=== PATIENT | male | born 1975 | race Two or more races ===

== ENCOUNTER 2024-06-28 17:04 | Emergency (ER) | payer OTHER, SELFPAY ==
[2024-06-28 17:23] VITALS: BP 146/92; PULSE 122; RESP 18; TEMP 37.2; O2SAT 99; BMI 27.4
[2024-06-28 18:14] LABS: PCR FLU A POSITIVE PCR FLU A (Negative); PCR FLU B Negative PCR FLU B (Negative); PCR RSV Negative PCR RSV (Negative); SARS PCR* Negative SARS-CoV-2 (Negative)
== END 2024-06-28 20:38 | disposition left against medical advice (07) ==
PROVIDERS: Emergency Provider Family Medicine
DX: Z53.21 Procedure and treatment not carried out due to patient leaving prior to being seen by health care provider (principal)
CPT/HCPCS: 87631

== ENCOUNTER 2024-07-27 06:03 | Day surgery (SDC) | payer OTHER, SELFPAY ==
[2024-07-27] VITALS (12 sets, daily range): BP systolic 137–153; BP diastolic 84–103; PULSE 71–98; RESP 14–19; TEMP 36.4–37.2; O2SAT 94–98; BMI 29.5
--- OUTSIDE RECORDS SUMMARY | 2024-07-27 06:07 | XMS_ITS | Clinical Summary ---
Author Organization [facility] Address [address] [place] [address] Care Team Providers Care Tack Picker Name Role Phone Unavailable Primary Care Provider Unavailabl e Source Comments You are receiving this document as you are listed as the primary care provider,follow-up provider, or the patient has been referred to you for consultation.This is in compliance with the Medicare and[facility] EHR Incentive [facility],which states Providers who transition their patient to another setting of careor provider of care or refers their patient to another provider of care shouldprovide summary care record for each transition of care or referral. [facility] Allergies No known active allergies Medications Medication Sig Dispensed Refills Start Date End Date Status gabapentin (NEURONTIN) 300 MG capsule Take 300 mg by mouth three times a day. 11/17/2020 Active omeprazole (PRILOSEC) 20 MG capsule Take 1 Capsule by mouth daily for 30 days. Take 1 hour before a meal. 30 Capsule 05/03/2021 05/03/2021 Discontinued Active Problems Problem Noted Date Diagnosed Date Lung nodule 11/22/2020 Overview (11/22/2020): CT (11/22/2020): incidental 3mm RLL nodule -->Follow-up in 6 months Fatty liver 11/22/2020 Overview (11/22/2020): Seen on CT scan on 11/22/2020 Prediabetes 10/25/2020 Overview (10/25/2020): A1c (10/24/2020): 6.2 Moderate mixed hyperlipidemia not requiring stat in therapy 10/25/2020 Overview (11/14/2020): ASCVD risk (10/2020): 5.0% Major depression, recurrent 07/16/2011 Marijuana dependence 07/16/2011 Hematuria 07/16/2011 Nephrolithiasis 03/16/2011 Overview (11/22/2020): Non-obstructing, again seen on CT 11/22/20 Migraine 03/16/2011 Immunizations Name Administration Dates Next Due Pfizer Monovalent 12+ Purple Top 11/08/2020,09/30 Tdap 03/12/2011 Social History Tobacco Use Types Packs/Day Years Used Date Smoking Tobacco: Former Cigars Smokeless Tobacco: Never Comments:marijauna user Alcohol Use Standard Drinks/Week Comments No 0 (1 standard drink = 0.6 oz pur e alcohol) admits to occ. use Sex and Gender Information Value Date Recorded Sex Assigned at Not on file Gender Identity Not on file Sexual Orientation Not on file Last Filed Vital Signs Vital Sign Reading Time Taken Comments Blood Pressure 137/102 05/03/2021 6:15 AM CDT Pulse 91 05/03/2021 6:15 AM CDT Temperature 36.4 C (97.5 F) 05/03/2021 6:15 AM CDT Respiratory Rate 16 05/03/2021 6:15 AM CDT Oxygen Saturation 100% 05/03/2021 6:15 AM CDT Inhaled Oxygen Concentration - - Weight 89.8 kg (198 lb) 11/30/2020 5:41 PM CDT Height 170.2 cm (5' 7) 04/02/2011 2:43 PM CDT Body Mass Index 31.01 04/02/2011 2:43 PM CDT Plan of Treatment Health Maintenance Due Date Last Done Comments Colon Cancer Screening Plan Due 1974 PSA Screening Discussion 1974 Adult Preventive Visit 1992 HepB (1) 1993 DTaP/Tdap/Td (2 - Tdap) 03/12/2021 03/12/2011 Prediabetes: HGBA1C 10/24/2021 10/24/2020 COVID-19 Vaccine (3 - 2023-2 5 season) 2024 11/08/2020, 10/18/2020 Influenza (#1) 2024 Zoster/Shingles (1 of 2) 2024 Cholesterol 11/08/2025 11/08/2020, 10/24/2020 HIV Screening (Preventive Services) Completed 07/08/2009 Hep C Screening (Preventive Services) Completed 07/08/2009 HepA Aged Out No longer eligi ble based on patient's age to complete this topic Hib Aged Out No longer eligi ble based on patient's age to complete this topic IPV (Polio) Aged Out No longer eligi ble based on patient's age to complete this topic MCV4 Aged Out No longer eligi ble based on patient's age to complete this topic Pneumococcal Aged Out No longer eligi ble based on patient's age to complete this topic Procedures Procedure Name Priority Date/Time Associated Diagnosis Comments LIPID PANEL & DIRECT LDL (IF NEEDED) Routine 11/08/2020 8:19 AM CDT Mixed hyperlipidemia HGB A1C Routine 10/24/2020 12:36 PM CDT Abdominal pain, generalized Nausea HIV ANTIBODY Routine 07/08/2009 9:35 PM SKIN INSTALLER HEPATITIS C ANTIBODY, WITH REFLEX Routine 07/08/2009 9:35 PM SKIN INSTALLER from Last 3 Months or Most Recently Relevant to Health Maintenance Results * (ABNORMAL) Lipid Panel and Direct LDL(If Needed) (11/08/2020 8:19 AM CDT) Cholesterol 180 0 - 199 mg/dL 11/08/2020 1:52 PM CDT [facility] Triglyceride 492(H) <=149 mg/dL 11/08/2020 1:52 PM CDT [facility] HDL Cholesterol 30(L) >=40 mg/dL 11/08/2020 1:52 PM CDT [facility] LDL, Calculated 1:52 PM CDT [facility] Comment:Unable to calculate, raw result outside instrument reportable range. Non HDL Chol, Calculated 150 mg/dL 11/08/2020 1:52 PM CDT [facility] Cholesterol/HDL Ratio 6.0 11/08/2020 1:52 PM CDT [facility] Hours Fasting 16 11/08/2020 1:52 PM CDT [facility] Blood Venipuncture / Unknown 11/08/2020 8:19 AM CDT 11/08/2020 8:[address] [facility] - 11/08/2020 1:52 PM CDT Calculated LDL is invalid when Triglyceride is >400 mg/dL. Kurt Patricia DO LAB_1 Performing Organization Address [facility] Co de Phone Number [facility] [address] [address], [facility] [phone] [facility] [address] [place] [id number], [facility] [phone] * (ABNORMAL) Hgb A1C (10/24/2020 12:36 PM CDT) Pathologist [facility] Hemoglobin A1C 6.2(H) <=5.6 % 10/24/2020 5:57 PM CDT [facility] Blood Venipuncture / Unknown 10/24/2020 12:36 PM CDT 10/24/2020 12:[address] [facility] - 10/24/2020 5:57 PM CDT For patients not previously diagnosed with diabetes: 5.7-6.4%: Increased risk for diabetes 6.5% and greater: Diagnostic for diabetes For patients diagnosed with diabetes: <8.0%: Goal of therapy for ages 18-75 Clinicians may recommend a higher or lower goal for specific individuals. Kurt Patricia DO LAB_1 Performing Organization Address [facility] Co de Phone Number [facility] [address] [place] [address], [facility] [phone] * HEPATITIS C AB (07/08/2009 9:35 PM SKIN INSTALLER) Pathologist [facility] Anti-HCV Non-React fritz NR [facility] Comment: Does Not Rule Out Infection with HCV Performed at [facility] 07/08/2009 9:35 PM SKIN INSTALLER 07/08/2009 9:46 PM SKIN INSTALLER Beba Blanton RAN LAB_1 Performing Organization Address City/[facility] Co de Phone Number [facility] [place], [place] [phone] * HIV ANTIBODY (07/08/2009 9:35 PM SKIN INSTALLER) HIV 1/2 Antibody Non-React fritz NR [facility] Comment: This assay detects antibodies to HIV Type 1(including Group O)and HIV Type 2 by chemiluminescent immunoassay. 07/08/2009 9:35 PM SKIN INSTALLER 07/08/2009 9:48 PM SKIN INSTALLER Beba Blanton RAN LAB_1 Performing Organization Address [facility] Co de Phone Number [place], [place] [phone] from Last 3 Months or Most Recently Relevant to Health Maintenance Advance Directives * Full Code (Latest Code Status on File) Date Activated Date Inactivated Comments 07/05/2009 6:00 PM 07/11/2009 5:13 PM
--- OUTSIDE RECORDS SUMMARY | 2024-07-27 06:07 | XMS_ITS | Encounter Summary ---
Author Organization [facility] Address [address] [place] [address] Care Team Providers Care Fly Fishing Guide Name Role Phone Shirlene Ortiz CNP Primary Care Provider [phone] OpTony quintero PA-C Unavailable [phone] Tony Rodriguez PA-C Primary Care Provider Shirlene Ortiz CNP Unavailable [phone] Reason for Visit * Reason Comments Medication Refill Encounter Details Date Type Department Care Team (Late st Contact Info) Description 08/25/2022 Refill [facility] [address] [place] [address] OpTony quintero PA-C [address] [place] [address] Medication Refill Social History Tobacco Use Types Packs/Day Years Used Date Smoking Tobacco: Never Smokeless Tobacco: Never Alcohol Use Standard Drinks/Week Comments Yes 0 (1 standard drink = 0.6 oz pur e alcohol) PHQ-2 Answer Date Recorded PHQ-2 Score 0 08/09/2022 Sex and Gender Information Value Date Recorded Sex Assigned at Not on file Legal Sex Male 10:41 AM CDT Gender Identity Not on file Sexual Orientation Not on file COVID-19 Exposure Response Date Recorded In the last 10 days, have yo u been in contact with someone who was confirmed or suspected to have Coronavirus/COVID-19? No / Unsure 08/09/2022 9:31 AM SLAT PICKLER documented as of this encounter Plan of Treatment Not on file documented as of this encounter Visit Diagnoses Diagnosis Gastric pain Dyspepsia and other specified disorders of function of stomach documented in this encounter Additional Health Concerns Assessment Noted Time PHQ-9 Depression Total Score: 16 022 9:29 AM CDT documented as of this encounter Care Teams Fly Fishing Guide Relationship Specialty Start Date End Date Shirlene Ortiz CNP [address] [place] [address] PCP - General Nurse Practitioner - Family 07/05/21 06/11/23 Tony Rodriguez PA-C [address] [place] [address] PCP - General Family Medicine 06/12/23 Tony Rodriguez PA-C [address] [place] [address] Assigned PCP 04/11/22 Shirlene Ortiz CNP [address] [place] [address] [place] [address] Assigned Neuroscience Provider 07/25/23 documented as of this encounter
--- OUTSIDE RECORDS SUMMARY | 2024-07-27 06:07 | XMS_ITS | Clinical Summary ---
Author Organization [facility] Address [place], [place] [address] Care Team Providers Care Assistant Tennis Coach Name Role Phone Tony Rodriguez Primary Care Provider [phone] Allergies No known active allergies Medications omeprazole (PRILOSEC) 40 mg Delayed-Release capsule Take 1 Capsule by mouth once daily. As needed 03/31/2021 Active calcium carbonate (Tums) 200 mg calcium (500 mg) chewable tabletIndicatio ns:Chronic GERD Chew 1 Tablet (500 mg) by mouth 3 times daily with meals. As needed 0 06/02/2021 Active Active Problems Problem Noted Date Diagnosed Date Chronic gum disease 05/30/2022 Gastric pain 05/30/2022 Chronic bilateral low back pain with left-sided sciatica 05/28/2022 DDD (degenerative disc disease), lumbar 05/28/20 22 Foraminal stenosis of lumbar region 05/28/2022 Left lumbar radiculopathy 05/28/2022 Lung nodule 11/22/2020 Overview (06/01/2021): CT (11/22/2020): incidental 3mm RLL nodule -->Follow-up in 6 months Moderate mixed hyperlipidemia not requiring stat in therapy 10/25/2020 Overview (03/27/2023): ASCVD risk (10/2020): 5.0% Hypertriglyceridemia 10/24/2020 Overview (06/01/2021): Seen on [facility] lipids in September & October 2020. Prediabetes 10/24/2020 Overview (06/01/2021): [facility] A1c 6.2% on 10/24/20. Gastroesophageal reflux disease without esophagi tis 06/15/2015 Hemoptysis 06/15/2015 Constipation 06/15/2015 Nausea 06/15/2015 Marijuana dependence 07/16/2011 Major depression, recurrent 07/16/2011 Hematuria 07/16/2011 Hepatic steatosis 07/10/2011 Bilateral nephrolithiasis 04/13/2011 Overview (06/01/2021): Bilateral kidney stones at the medullary tips. These are all less than 3 mm. Migraine 03/16/2011 Diverticular disease of colon 09/11/2010 Immunizations Name Administration Dates Next Due Influenza, IIV4 05/02/2022,06/02/2021 Tdap 06/02/2021,03/12/2011 Family History Medical History Relation Name Comments Cancer Father non-Hodgekin's lymphoma Graves' disease Father Unknown Maternal Grandfather wh en Alex was 6 Diabetes Maternal Grandmother Cancer Maternal Uncle metastatic, u nkown primary Good Health Mother Cancer Paternal Aunt bladder Unknown Paternal Grandfather Unknown Paternal Grandmother Good Health Sister Testicular cancer No Family History Relation Name Status Comments Brother Father Maternal Grandfather Maternal Grandmother Maternal Uncle Mother Alive Paternal Aunt Paternal Grandfather Paternal Grandmother Sister Social History Tobacco Use Types Packs/Day Years Used Date Smoking Tobacco: Never Smokeless Tobacco: Never Tobacco Cessation:Counseling Given: No Alcohol Use Standard Drinks/Week Comments Not Currently 0 (1 standard drink = 0.6 oz pur e alcohol) occasional PHQ-2 Answer Date Recorded PHQ-2 TOTAL SCORE 2 06/02/2021 Financial Resource Strain Answer Date R ecorded Difficulty of Paying Living Expenses Not on file 07/01/2021 Difficulty of Paying Living Expenses Not on file 07/01/2021 Sex and Gender Information Value Date Recorded Sex Assigned at Not on file Legal Sex Male 7:39 AM CORPORATE STATISTICAL FINANCIAL ANALYST Gender Identity Not on file Sexual Orientation Not on file Obstetrics History Last Filed Vital Signs Vital Sign Reading Time Taken Comments Blood Pressure 140/100 07/18/2023 1:34 PM CORPORATE STATISTICAL FINANCIAL ANALYST Pulse 86 07/18/2023 1:31 PM CORPORATE STATISTICAL FINANCIAL ANALYST Temperature 36.9 C (98.4 F) 07/04/2023 11:50 AM CORPORATE STATISTICAL FINANCIAL ANALYST Respiratory Rate 24 07/04/2023 11:50 AM CORPORATE STATISTICAL FINANCIAL ANALYST Oxygen Saturation 99% 07/04/2023 11:50 AM CORPORATE STATISTICAL FINANCIAL ANALYST Inhaled Oxygen Concentration - - Weight 80.8 kg (178 lb 3.2 oz) 07/18/2023 1:31 P M CORPORATE STATISTICAL FINANCIAL ANALYST Height 170.2 cm (5' 7) 07/26/2021 8:18 AM CORPORATE STATISTICAL FINANCIAL ANALYST Body Mass Index 27.91 07/26/2021 8:18 AM CORPORATE STATISTICAL FINANCIAL ANALYST Plan of Treatment Health Maintenance Due Date Last Done Comments Colonoscopy through age 75 09/11/2020 09/11/2010, Depression screening for age 12+ 06/02/2022 06/02/20 21 BMI (ht and wt on same day) for age 18+ 07/26/2022 07/26/2021, 07/12/2021, 06/02/2021, Additional history exists COVID-19 vaccine series ( season) 2024 05/30/2022, 11/08/2020, 10/18/2020 Influenza for age 50-64 2024 05/02/2022, 06/02 Pneumococcal series for age 50+ (1 of 1 - PCV) 2024 Zoster (shingles) series for age 50+ (1 of 2) 2024 Lipids for age 45-75 06/02/2026 06/02/2021 Tetanus booster 06/02/2031 06/02/2021, 03/12/2011 HIV for age 15-65 Completed 01/10/2012 Hepatitis C screening for ag e 18-79 Completed 01/10/2012 Tdap Completed 06/02/2021, 03/12/2011 Procedures Procedure Name Priority Date/Time Associated Diagnosis Comments LIPID PANEL W REFLEX MEASURED LDL Routine 06/02/2021 9:17 AM CORPORATE STATISTICAL FINANCIAL ANALYST Hypertriglyceridemia ANTI HIV 1/2 Routine 01/10/2012 11:47 AM CDT Screen for STD (sexually transmitted disease) ANTI HCV Routine 01/10/2012 11:47 AM CDT Screen for STD (sexually transmitted disease) SCAN-COLONOSCOPY 09/11/2010 12:0 0 AM CDT from Last 3 Months or Most Recently Relevant to Health Maintenance Results * (ABNORMAL) LIPID PANEL W REFLEX MEASURED LDL (06/02/2021 9:17 AM CORPORATE STATISTICAL FINANCIAL ANALYST) CHOLESTEROL,TOTAL 217(H) 100 - 199 mg/dL 06/02/2021 2:55 PM CORPORATE STATISTICAL FINANCIAL ANALYST [facility] TRIGLYCERIDES 188(H) <150 mg/dL 06/02/2021 2:55 PM CORPORATE STATISTICAL FINANCIAL ANALYST [facility] HDL CHOLESTEROL 39(L) >40 mg/dL 2:55 PM CORPORATE STATISTICAL FINANCIAL ANALYST [facility] NON-HDL CHOLESTEROL 178(H) <145 mg/dl 06/02/2021 2:55 PM CORPORATE STATISTICAL FINANCIAL ANALYST [facility] CHOL/HDL RATIO 5.56(H) <4.50 06/02/2021 2:55 PM CORPORATE STATISTICAL FINANCIAL ANALYST [facility] LDL CHOLESTEROL 140(H) <=130 mg/dL 06/02/2021 2:55 PM CORPORATE STATISTICAL FINANCIAL ANALYST [facility] VLDL CHOLESTEROL 38(H) <=30 mg/dL 06/02/2021 2:55 PM CORPORATE STATISTICAL FINANCIAL ANALYST [facility] PROVIDER ORDERED STATUS FASTING 06/02/2021 2:55 PM CORPORATE STATISTICAL FINANCIAL ANALYST [facility] Blood BLOOD SPECIMEN / Unknown Venipuncture / Unknown 06/02/2021 9:17 AM CORPORATE STATISTICAL FINANCIAL ANALYST 06/02/2021 9:17 AM CORPORATE STATISTICAL FINANCIAL ANALYST us Nati Rome MD CHEMISTRY Final Re sult [facility] [address] [place] [address], [place] * ANTI HCV (01/10/2012 11:47 AM CDT) ANTI HCV Non-reacti ve [facility] Blood specimen (specimen) BLOOD SPECIMEN / Unknown 01/10/2012 11:47 AM CDT 01/10/2012 11:42 AM CDT us Maik Enrique MD SEND OUTS Final Resu lt [facility] INTERNAL ZIP [id number] [place] [address] * ANTI HIV 1/2 (01/10/2012 11:47 AM CDT) ANTI HIV 1/2 Non-reacti ve [facility] Blood specimen (specimen) BLOOD SPECIMEN / Unknown 01/10/2012 11:47 AM CDT 01/10/2012 11:42 AM CDT us Maik Enrique MD SEND OUTS Final Resu lt Performing Organization Address City/[facility]/ZIP Co de Phone Number [facility] INTERNAL ZIP [phone] [place] [phone] * SCAN-COLONOSCOPY (09/11/2010 12:00 AM CDT) Narrative Procedure Note Scanner - 09/11/2010 12:00 AM CDT us Scanner OTHER Final Result from Last 3 Months or Most Recently Relevant to Health Maintenance Care Teams Assistant Tennis Coach Relationship Specialty Start Date End Date Michael, JP Hale [address] [place] [address] PCP - General Physician Cage Maker 07/18/23
--- OUTSIDE RECORDS SUMMARY | 2024-07-27 06:07 | XMS_ITS | Referral Summary ---
Author Organization [facility] Address [address] [place] [address] Care Team Providers Care Information Broker Name Role Phone OppelTony PA-C Unavailable [phone] OpTony quintero PA-C Primary Care Provider Shirlene Ortiz PARTS PERSON Unavailable [phone] Allergies No known active allergies Medications omeprazole (PRILOSEC) [address] Parikh ons:Gastric pain TAKE 1 CAPSULE BY MOUTH EVERY DAY 90 capsule 3 08/27/2022 Active Active Problems Problem Noted Date Diagnosed Date Gastric pain 05/30/2022 Chronic gum disease 05/30/2022 Chronic bilateral low back pain with left-sided sciatica 05/28/2022 Foraminal stenosis of lumbar region 05/28/2022 Bulging lumbar disc 05/28/2022 DDD (degenerative disc disease), lumbar 05/28/20 Left lumbar radiculopathy 05/28/2022 Immunizations Name Administration Dates Next Due COVID-19 Bivalent 12+ (Pfizer) 05/30/2022 COVID-19 MONOVALENT 12+ (Pfizer) 11/08/2020,09/30 Influenza Vaccine >6 months,quad, PF 05/02/2022, 06/02/2021 TDAP (Adacel,Boostrix) 06/02/2021,03/12/2011 Social History Tobacco Use Types Packs/Day Years Used Date Smoking Tobacco: Never Smokeless Tobacco: Never Tobacco Cessation:Counseling Given: Not Answered Alcohol Use Standard Drinks/Week Comments Yes 0 (1 standard drink = 0.6 oz pur e alcohol) PHQ-2 Answer Date Recorded PHQ-2 Score 0 08/09/2022 Adolescent Education Answer Date Record ed Getting School Help Needed Not on file 03/23 Food Insecurity Answer Date Recorded Within the past 12 months, d id you worry that your food would run out before you got money to buy more? Patient refused 2022 Within the past 12 months, d id the food you bought just not last and you didn t have money to get more? Patient refused 06/12/2023 Housing Stability Answer Date Recorded Do you have housing? (Amelia em is defined as stable permanent housing and does not include staying ouside in a car, in a tent, in an abandoned building, in an overnight jail, or couch-surfing.) Yes 06/12/2023 Are you worried about losing your housing? No 06/12/2023 Financial Resource Strain Answer Date R ecorded Within the past 12 months, h ave you or your family members you live with been unable to get utilities (heat, electricity) when it was really needed? No 06/12/2023 Transportation Needs Answer Date Record ed Within the past 12 months, h as lack of transportation kept you from medical appointments, getting your medicines, non-medical meetings or appointments, work, or from getting things that you need? No 06/12/2023 Sex and Gender Information Value Date Recorded Sex Assigned at Not on file Legal Sex Male 10:41 AM CDT Gender Identity Not on file Sexual Orientation Not on file Last Filed Vital Signs Vital Sign Reading Time Taken Comments Blood Pressure 134/84 06/12/2023 2:02 PM ABLE BODIED SEAMAN Pulse 93 06/12/2023 1:47 PM ABLE BODIED SEAMAN Temperature 36.6 C (97.9 F) 06/12/2023 1:47 PM ABLE BODIED SEAMAN Respiratory Rate 18 06/12/2023 1:47 PM ABLE BODIED SEAMAN Oxygen Saturation 99% 06/12/2023 1:47 PM ABLE BODIED SEAMAN Inhaled Oxygen Concentration - - Weight 83.9 kg (185 lb) 06/12/2023 1:47 PM ABLE BODIED SEAMAN Height 167.6 cm (5' 6) 06/12/2023 1:47 PM ABLE BODIED SEAMAN Body Mass Index 29.86 06/12/2023 1:47 PM ABLE BODIED SEAMAN Plan of Treatment Not on file Procedures Procedure Name Priority Date/Time Associated Diagnosis Comments COMPREHENSIVE METABOLIC PANEL Routine 06/12/2023 2:09 PM ABLE BODIED SEAMAN Urinary dysfunction HEPATITIS C SCREEN REFLEX TO HCV RNA QUANT AND GENOTYPE Routine 05/02/2022 10:33 AM CDT Need for hepatitis C screening test LIPID REFLEX TO DIRECT LDL PANEL Routine 05/02/2022 10:33 AM CDT Screening for hyperlipidemia from Last 3 Months or Most Recently Relevant to Health Maintenance Results * (ABNORMAL) Comprehensive metabolic panel (BMP + Alb, Alk Phos, ALT, AST, Total. Bili, TP) (06/12/2023 2:09 PM ABLE BODIED SEAMAN) Pathologist [facility] [place] Sodium 141 135 - 145 mmol/L 06/13/2023 2:42 PM ABLE BODIED SEAMAN [facility] Comment:Reference intervals for this test were updated on 03/26/2023 to more accurately reflect our healthy population. There may be differences in the flagging of prior results with similar values performed with this method. Interpretation of those prior results can be made in the context of the updated reference intervals. Potassium 3.8 3.4 - 5.3 mmol/L 06/13/2023 2:42 PM ABLE BODIED SEAMAN [facility] Carbon Dioxide (CO2) 19(L) 22 - 29 mmol/L 06/13/2023 2:42 PM ABLE BODIED SEAMAN [facility] Anion Gap 19(H) 7 - 15 mmol/L 06/13/2023 2:42 PM ABLE BODIED SEAMAN [facility] Urea Nitrogen 10.8 6.0 - 20.0 mg/dL 06/13/2023 2:42 PM ABLE BODIED SEAMAN [facility] Creatinine 0.97 0.67 - 1.17 mg/dL 06/13/2023 2:42 PM ABLE BODIED SEAMAN [facility] GFR Estimate >90 >60 mL/min/1. 73m2 06/13/2023 2:42 PM ABLE BODIED SEAMAN [facility] Calcium 9.3 8.6 - 10.0 mg/dL 06/13/2023 2:42 PM ABLE BODIED SEAMAN [facility] Chloride 103 98 - 107 mmol/L 06/13/2023 2:42 PM ABLE BODIED SEAMAN [facility] Glucose 104(H) 70 - 99 mg/dL 06/13/2023 2:42 PM ABLE BODIED SEAMAN [facility] Alkaline Phosphatase 96 40 - 150 U/L 06/13/2023 2:42 PM ABLE BODIED SEAMAN [facility] Comment:Reference intervals for this test were updated on 05/14/2023 to more accurately reflect our healthy population. There may be differences in the flagging of prior results with similar values performed with this method. Interpretation of those prior results can be made in the context of the updated reference intervals. AST 06/13/2023 2:42 PM ABLE BODIED SEAMAN [facility] Comment: Unsatisfactory specimen - lipemic Reference intervals for this test were updated on 12/10/2022 to more accurately reflect our healthy population. There may be differences in the flagging of prior results with similar values performed with this method. Interpretation of those prior results can be made in the context of the updated reference intervals. ALT 06/13/2023 2:42 PM ABLE BODIED SEAMAN [facility] Comment: Unsatisfactory specimen - lipemic Reference intervals for this test were updated on 12/10/2022 to more accurately reflect our healthy population. There may be differences in the flagging of prior results with similar values performed with this method. Interpretation of those prior results can be made in the context of the updated reference intervals. Protein Total 7.3 6.4 - 8.3 g/dL 06/13/2023 2:42 PM ABLE BODIED SEAMAN [facility] Albumin 4.7 3.5 - 5.2 g/dL 06/13/2023 2:42 PM ABLE BODIED SEAMAN [facility] Bilirubin Total 0.2 <=1.2 mg/dL 06/13/2023 2:42 PM ABLE BODIED SEAMAN [facility] Blood BLOOD SPECIMEN / Unknown Venipuncture / Unknown 06/12/2023 2:09 PM ABLE BODIED SEAMAN 06/12/2023 2:09 PM ABLE BODIED SEAMAN us Tony Rodriguez PA-C LAB - BLOOD ORDERABLES Final Result [facility] [address] [facility], [address] [place] [phone], [facility] [phone] * Hepatitis C Screen Reflex to HCV RNA Quant and Genotype (05/02/2022 10:33 AM CDT) Pathologist [facility] [place] Hepatitis C Antibody Nonreactive Nonreactive 05/02/2022 6:35 PM CDT SPECIALTY CORE/PROT/EN DO Blood BLOOD SPECIMEN / Unknown Venipuncture / Unknown 05/02/2022 10:33 AM CDT 05/02/2022 10:33 AM CDT Narrative SPECIALTY CORE/PROT/ENDO - 05/02/2022 6:35 PM CDT Assay performance characteristics have not been established for newborns, infants, and children. Tony Rodriguez PA-C LAB - BLOOD ORDERABLES Final Result [facility] SPECIALTY CORE/PROT/ENDO Specialty Core/Prot/Endo 500 [facility], Room [address] [place] [address] * (ABNORMAL) Lipid panel reflex to direct LDL Non-fasting (05/02/2022 10:33 AM CDT) Cholesterol 235(H) <200 mg/dL 05/02/2022 10:21 PM CDT [facility] Triglycerides 162(H) <150 mg/dL 05/02/2022 10:21 PM CDT [facility] Direct Measure HDL 45 >=40 mg/dL 05/02/2022 10:21 PM CDT [facility] LDL Cholesterol Calculated 158(H) <=100 mg/dL 05/02/2022 10:21 PM CDT [facility] Non HDL Cholesterol 190(H) <130 mg/dL 05/02/2022 10:21 PM CDT [facility] Patient Fasting > 8hrs? Yes 05/02/2022 10:21 PM CDT [facility] Blood BLOOD SPECIMEN / Unknown Venipuncture / Unknown 05/02/2022 10:33 AM CDT 05/02/2022 10:33 AM CDT Narrative [facility] - 05/02/2022 10:21 PM CDT Cholesterol Desirable: <200 mg/dL Triglycerides Normal: Less than 150 mg/dL Borderline High: 150-199 mg/dL High: 200-499 mg/dL Very High: Greater than or equal to 500 mg/dL Direct Measure HDL Female: Greater than or equal to 50 mg/dL Male: Greater than or equal to 40 mg/dL LDL Cholesterol Desirable: <100mg/dL Above Desirable: 100-129 mg/dL Borderline High: 130-159 mg/dL High: 160-189 mg/dL Very High: >= 190 mg/dL Non HDL Cholesterol Desirable: 130 mg/dL Above Desirable: 130-159 mg/dL Borderline High: 160-189 mg/dL High: 190-219 mg/dL Very High: Greater than or equal to 220 mg/dL Tony Rodriguez PA-C LAB - BLOOD ORDERABLES Final Result [facility] Lab [address] [facility] Lab (Main level, no room number) [place] [address], [place] [phone] [facility] [address] Lab, [place] [address], [facility] [phone] from Last 3 Months or Most Recently Relevant to Health Maintenance Care Teams Information Broker Relationship Specialty Start Date End Date Tony Rodriguez PA-C [address] [place] [address] PCP - General Family Medicine 06/12/23 Tony Rodriguez PA-C [address] [place] [address] Assigned PCP 04/11/22 Shirlene Ortiz, MARISELA [address] [place] [address] [place] [address] Assigned Neuroscience Provider 07/25/23
--- OUTSIDE RECORDS SUMMARY | 2024-07-27 06:07 | XMS_ITS | Clinical Summary ---
Author Organization [facility] Address [address] [place] [address] Care Team Providers Care Faculty Criminal Justice Name Role Phone OppelTony PA-C Unavailable [phone] OpTony quintero PA-C Primary Care Provider Shirlene Ortiz FACE BURLER Unavailable [phone] Allergies No known active allergies Medications omeprazole [...] months,quad, PF 05/02/2022, 06/02/2021 TDAP (Adacel,Boostrix) 06/02/2021,03/12/2011 Family History Relation Status Comments Father Sister Alive Social History Tobacco Use Types Packs/Day Years [...] Answer Date Recorded Do you have housing? (Housin g is defined as stable permanent housing and [...] Comments Blood Pressure 134/84 06/12/2023 2:02 PM ROD FILLER Pulse 93 06/12/2023 1:47 PM ROD FILLER Temperature 36.6 C (97.9 F) 06/12/2023 1:47 PM ROD FILLER Respiratory Rate 18 06/12/2023 1:47 PM ROD FILLER Oxygen Saturation 99% 06/12/2023 1:47 PM ROD FILLER Inhaled Oxygen Concentration - - Weight 83.9 kg (185 lb) 06/12/2023 1:47 PM ROD FILLER Height 167.6 cm (5' 6) 06/12/2023 1:47 PM ROD FILLER Body Mass Index 29.86 06/12/2023 1:47 PM ROD FILLER Plan of Treatment Health Maintenance Due Date Last Done Comments ADVANCE CARE PLANNING 1974 ANNUAL REVIEW OF HM ORDERS 1974 CT COLONOGRAPHY 1974 FIT 1974 FLEX SIG 1974 sDNA (Cologuard) 1974 COLONOSCOPY 1984 COLORECTAL CANCER SCREENING 1984 HIV SCREENING 1989 HEPATITIS B IMMUNIZATION (1 of 3 - 19+ 3-dose series) 1993 YEARLY PREVENTIVE VISIT 06/02/2022 06/02/2021, 06/02 COVID-19 Vaccine ( season) 2024 05/30/2022, 11/08/2020, 10/18/2020 INFLUENZA VACCINE (#1) 2024 05/02/2022, 2020 Pneumococcal Vaccine: 50+ Years (1 of 1 - PCV) 2024 ZOSTER IMMUNIZATION (1 of 2) 2024 PHQ-2 (once per calendar year) 2024 08/09/2022, 05/02/2022, 05/02/2022, Additional history exists GLUCOSE 06/12/2026 06/12/2023, 08/2021, 06/22/2020 LIPID 05/02/2027 05/02/2022 DTAP/TDAP/TD IMMUNIZATION (3 - Td or Tdap) 06/02/2031 06/02/2021, 03/12/2011 RSV VACCINE (1 - 1-dose 75+ series) 2049 HEPATITIS C SCREENING Completed 05/02/2022 HPV IMMUNIZATION Aged Out No longer e ligible based on patient's age to complete this topic MENINGITIS IMMUNIZATION Aged Out No l onger eligible based on patient's age to complete this topic RSV MONOCLONAL ANTIBODY Aged Out No l onger eligible based on patient's age to complete this topic Procedures Procedure Name Priority Date/Time Associated Diagnosis Comments COMPREHENSIVE METABOLIC PANEL Routine 06/12/2023 2:09 PM ROD FILLER Urinary dysfunction HEPATITIS C SCREEN REFLEX TO [...] AST, Total. Bili, TP) (06/12/2023 2:09 PM ROD FILLER) Sodium 141 135 - 145 mmol/L 06/13/2023 2:42 PM ROD FILLER [facility] Comment:Reference intervals for this test were updated on 03/26/2023 to more accurately reflect our healthy population. There may be differences in the flagging of prior results with similar values performed with this method. Interpretation of those prior results can be made in the context of the updated reference intervals. Potassium 3.8 3.4 - 5.3 mmol/L 06/13/2023 2:42 PM ROD FILLER [facility] Carbon Dioxide (CO2) 19(L) 22 - 29 mmol/L 06/13/2023 2:42 PM ROD FILLER [facility] Anion Gap 19(H) 7 - 15 mmol/L 06/13/2023 2:42 PM ROD FILLER [facility] Urea Nitrogen 10.8 6.0 - 20.0 mg/dL 06/13/2023 2:42 PM ROD FILLER [facility] Creatinine 0.97 0.67 - 1.17 mg/dL 06/13/2023 2:42 PM ROD FILLER [facility] GFR Estimate >90 >60 mL/min/1. 73m2 06/13/2023 2:42 PM ROD FILLER [facility] Calcium 9.3 8.6 - 10.0 mg/dL 06/13/2023 2:42 PM ROD FILLER [facility] Chloride 103 98 - 107 mmol/L 06/13/2023 2:42 PM ROD FILLER [facility] Glucose 104(H) 70 - 99 mg/dL 06/13/2023 2:42 PM ROD FILLER [facility] Alkaline Phosphatase 96 40 - 150 U/L 06/13/2023 2:42 PM ROD FILLER [facility] Comment:Reference intervals for this test were updated on 05/14/2023 to more accurately reflect our healthy population. There may be differences in the flagging of prior results with similar values performed with this method. Interpretation of those prior results can be made in the context of the updated reference intervals. AST 06/13/2023 2:42 PM ROD FILLER [facility] Comment: Unsatisfactory specimen - lipemic Reference intervals for this test were updated on 12/10/2022 to more accurately reflect our healthy population. There may be differences in the flagging of prior results with similar values performed with this method. Interpretation of those prior results can be made in the context of the updated reference intervals. ALT 06/13/2023 2:42 PM ROD FILLER [facility] Comment: Unsatisfactory specimen - lipemic [...] 6.4 - 8.3 g/dL 06/13/2023 2:42 PM ROD FILLER [facility] Albumin 4.7 3.5 - 5.2 g/dL 06/13/2023 2:42 PM ROD FILLER [facility] Bilirubin Total 0.2 <=1.2 mg/dL 06/13/2023 2:42 PM ROD FILLER [facility] Blood BLOOD SPECIMEN / Unknown Venipuncture / Unknown 06/12/2023 2:09 PM ROD FILLER 06/12/2023 2:09 PM ROD FILLER Tony Rodriguez PA-C LAB - BLOOD ORDERABLES Final Result [facility] [place] [facility] [address] [facility], [address] [place] [phone], [facility] [phone] * Hepatitis C Screen Reflex to HCV RNA Quant and Genotype (05/02/2022 10:33 AM CDT) Hepatitis C Antibody Nonreactive Nonreactive 05/02/2022 6:35 PM CDT SPECIALTY CORE/PROT/EN DO Blood BLOOD SPECIMEN / Unknown Venipuncture / Unknown 05/02/2022 10:33 AM CDT 05/02/2022 10:33 AM CDT Narrative SPECIALTY CORE/PROT/ENDO - 05/02/2022 6:35 PM CDT Assay performance characteristics have not been established for newborns, infants, and children. us Tony Rodriguez PA-C LAB - BLOOD ORDERABLES Final Result [facility] SPECIALTY CORE/PROT/ENDO [facility] Specialty Core/Prot/Endo [address] [facility] [address] [facility], [address] [address], [facility] [phone] * (ABNORMAL) Lipid panel reflex to direct [...] - BLOOD ORDERABLES Final Result [facility] Acute Care Lab [address] [facility] Lab (Main level, no room number) [place] [address], [place] [phone] [facility] [address], [place] [address], [place] [phone] from Last 3 Months or Most Recently Relevant to Health Maintenance Care Teams Faculty Criminal Justice Relationship Specialty Start Date End Date Tony Rodriguez PA-C [address] [place] [address] PCP - General Family Medicine 06/12/23 Tony Rodriguez PA-C [address] [place] [address] Assigned PCP 04/11/22 Shirlene Ortiz, MARISELA [address] [place] [address] [place] [address] Assigned Neuroscience Provider 07/25/23
--- OUTSIDE RECORDS SUMMARY | 2024-07-27 06:07 | XMS_ITS | Encounter Summary ---
Author Organization [facility] Address [address] [place] [address] Care Team Providers Care Lpn Name Role Phone Shirlene Ortiz CNP Primary Care Provider [phone] Tony Rodriguez PA-C Unavailable [phone] Tony Rodriguez PA-C Primary Care Provider Shirlene Ortiz CNP Unavailable [phone] Encounter Details Date Type Department Care Team (Late st Contact Info) Description 05/02/2021 Documentation Only INTERFACED REPORT Unknown, Provider Social History Tobacco Use Types Packs/Day Years Used Date Smoking Tobacco: Never Smokeless Tobacco: Never Sex and Gender Information Value Date Recorded Sex Assigned at Not on file Legal Sex Male 10:41 AM CDT Gender Identity Not on file Sexual Orientation Not on file COVID-19 Exposure Response Date Recorded In the last month, have you been in contact with someone who was confirmed or suspected to have Coronavirus / COVID-19? Yes 05/02/2021 6:07 AM CDT documented as of this encounter Plan of Treatment Not on file documented as of this encounter Visit Diagnoses Not on filedocumented in this encounter Care Teams Lpn Relationship Specialty Start Date End Date Shirlene Ortiz CNP [address] [place] [address] PCP - General Nurse Practitioner - Family 07/05/21 06/11/23 Tony Rodriguez PA-C [address] [place] [address] PCP - General Family Medicine 06/12/23 Tony Rodriguez PA-C [address] [facility] [place] [address] Assigned PCP 04/11/22 Shirlene Ortiz CNP 0 [facility] [place] [address] Assigned Neuroscience Provider 07/25/23 documented as of this encounter
--- OUTSIDE RECORDS SUMMARY | 2024-07-27 06:07 | XMS_ITS | Encounter Summary ---
Author Organization [facility] Address [address] [place] [address] Care Team Providers Care Gearman Name Role Phone Shirlene Ortiz CNP Primary Care Provider [phone]- [phone] Tony Rodriguez PA-C Unavailable [phone] Tony Rodriguez PA-C Primary Care Provider Shirlene Ortiz CNP Unavailable [phone] Encounter Details Date Type Department Care Team (Late st Contact Info) Description 12/01/2020 Records - [facility] CONVERSION Scan, Non-Provider Social History Tobacco Use Types Packs/Day Years Used Date Smoking Tobacco: Never Smokeless Tobacco: Never Sex and Gender Information Value Date Recorded Sex Assigned at Not on file Legal Sex Male 10:41 AM CDT Gender Identity Not on file Sexual Orientation Not on file documented as of this encounter Plan of Treatment Not on file documented as of this encounter Visit Diagnoses Not on filedocumented in this encounter Care Teams Gearman Relationship Specialty Start Date End Date Shirlene Ortiz CNP [address] [place] [address] PCP - General Nurse Practitioner - Family 07/05/21 06/11/23 Tony Rodriguez PA-C [address] [place] [address] PCP - General Family Medicine 06/12/23 Tony Rodriguez PA-C [address] [place] [address] Assigned PCP 04/11/22 Shirlene Ortiz CNP 0 [facility] [place] [address] Assigned Neuroscience Provider 07/25/23 documented as of this encounter
--- OUTSIDE RECORDS SUMMARY | 2024-07-27 06:07 | XMS_ITS | Encounter Summary ---
Author Organization [facility] Address [facility] [place] [address] Care Team Providers Care Merchandise Team Manager Name Role Phone Shirlene Ortiz CNP Primary Care Provider [phone] Tony Rodriguez PA-C Unavailable [phone] Tony Rodriguez PA-C Primary Care Provider Shirlene Ortiz CNP Unavailable [phone] Reason for Visit * Reason Onset Date Comments Appointment 06/07/2023 Encounter Details Date Type Department Care Team (Late st Contact Info) Description 06/07/2023 Telephone [place] [address] [place] [address] Tony Rodriguez PA-C [address] [place] [address] Appointment Social History Tobacco Use Types Packs/Day Years Used Date Smoking Tobacco: Never Smokeless Tobacco: Never Alcohol Use Standard Drinks/Week Comments Yes 0 (1 standard drink = 0.6 oz pur e alcohol) PHQ-2 Answer Date Recorded PHQ-2 Score 0 08/09/2022 Adolescent Education Answer Date Record ed Getting School Help Needed Not on file 03/23 Sex and Gender Information Value Date Recorded Sex Assigned at Not on file Legal Sex Male 10:41 AM CDT Gender Identity Not on file Sexual Orientation Not on file documented as of this encounter Miscellaneous Notes * Telephone Encounter - Tony Rodriguez PA-C - 06/07/2023 12:17 PM TOMB MAKER HELPER I have not seen him for this in the past. Looks like a chronic condition. Follow-up with PCP when able. Tony Rodriguez PA-C MAKER HELPER * Telephone Encounter - Gentry Clark - 06/07/2023 8:46 AM CST Looks like patient has seen you for this earlier this year, would you like me to get them scheduledfor next week? Gentry Grey Bryant Senior Scrum Master MAKER HELPER * Telephone Encounter - Shirlene Warren - 06/07/2023 8:12 AM CST Reason for Call: Appointment Request Patient requesting this type of appt: Chronic Diease Management/Medication/Follow-Up Requested provider: Shirlene Ortiz Reason patient unable to be scheduled: Not within requested timeframe When does patient want to be seen/preferred time: Same day Comments: Pt is experiencing back pain, and has been feeling this for about 7 months and it's is getting worse. Would like to be seen ron with PCP or clinic today if possible. Okay to leave a detailed message?: Yes at Home number on file [phone] (home) Call taken on 06/07/2023 at 8:13 AM by Shirlene Warren MAKER HELPER documented in this encounter Plan of Treatment Not on file documented as of this encounter Visit Diagnoses Not on filedocumented in this encounter Additional Health Concerns Assessment Noted Time PHQ-9 Depression Total Score: 16 022 9:29 AM CDT documented as of this encounter Care Teams Merchandise Team Manager Relationship Specialty Start Date End Date Shirlene Ortiz CNP [address] [place] [address] PCP - General Nurse Practitioner - Family 07/05/21 06/11/23 Tony Rodriguez PA-C [address] [place] [address] PCP - General Family Medicine 06/12/23 Tony Rodriguez PA-C [address] [place] [address] Assigned PCP 04/11/22 Shirlene Ortiz, MARISELA 0 [facility] [place] [id number] Assigned Neuroscience Provider 07/25/23 documented as of this encounter
[2024-07-27] MEDS: SODIUM CHLORIDE 0.9 % (FLUSH) 10 ML SYRINGE IVF (06:45)
--- NOTE | 2024-07-27 07:18 | W.PM.H&PU ---
History & Physical Update History & Physical Update H&P Reviewed and patient assessed: No changes noted
[2024-07-27] MEDS: LACTATED RINGERS 1000 ML 1,000 ML 100 ML IV (07:19)
[2024-07-27] MEDS: CEFAZOLIN 2 GM INJ IVP (07:39)
[2024-07-27] MEDS: BUPIVACAINE 0.25% 30 ML 15 ML INJECTION (07:55)
[2024-07-27] MEDS: LIDOCAINE 1%-EPI 1:100,000 15 ML INFILTRATI (07:55)
--- NOTE | 2024-07-27 08:21 | P.GSOP_ITS ---
Operative Note Date of procedure: 07/27/24 Pre-op diagnosis: 1. Symptomatic left inguinal hernia. Post-op diagnosis: 1. Small direct left inguinal hernia. Type of Procedure: 1. Laparoscopic left inguinal hernia repair with mesh. Indications: 49-year-old male was seen in clinic for evaluation of a left inguinal hernia. Patient developed left inguinal pain while at work when he was lifting a heavy cabinet. The pain was severe and was radiating to the left groin. The pain continued for several days afterwards. Patient was taking ibuprofen and that helped his pain somewhat. He continued to have discomfort in left groin that was radiating to his left testicle. On clinical exam patient had tenderness to palpation of the left spermatic cord. With the patient standing up and doing Valsalva there was a small left inguinal hernia palpated. Patient had tenderness with his exam. Given patient's clinical history and his symptoms, laparoscopic left inguinal hernia repair was recommended. The procedure was discussed in detail. The risks associated procedure including infection, bleeding, injury to preperitoneal organs, nerve pain, and hernia recurrence were all discussed with the patient, he agreed to proceed. Procedure Description: After discussing the risks and benefits of the procedure, the patient signed informed consent.? The operative site was marked and the patient was brought to the operating room and placed on the operating table in supine position.? Care was taken to pad the patient's pressure points.?? The patient was then intubated by anesthesia.?? The operative site was then prepped and draped in the usual sterile fashion.? A time-out was then performed. An infraumbilical skin incision was made with a scalpel and subcutaneous tissues were dissected with electrocautery. Anterior sheath was incised with electrocautery and rectus muscle was retracted laterally. A 12 mm spacemaker dissector system was introduced into the incision and advanced over the posterior sheath. Preperitoneal space was dissected with manually insufflating air under direct visualization. Once the tissues were dissected, the balloon was deflated and removed.? A laparoscopic balloon was placed into preperitoneal space and balloon was inflated. Preperitoneal space was insufflated with air. No bleeding was identified upon examination of preperitoneal space. We then placed two 5 mm ports suprapubically under direct visualization. ? The preperitoneal tissues were bluntly dissected with graspers.? The pubic bone was identified and? cleared from preperitoneal tissue.?? Inferior epigastrics on left?side were retracted towards the abdominal wall.?? Spermatic cord? was id entified and dissected circumferentially.? This was done bluntly. The direct left hernia space was identified.? Peritoneum was identified in the spermatic cord and retracted cephalad. There was no evidence of indirect inguinal hernia.?? When adequate space was developed for mesh placement, a left sided Parietex? mesh was used and positioned around the spermatic cord. The mesh was tacked medially and laterally with?tacks.? Additional local anesthetic was injected directly into pre-peritoneal space. ? The space was deflated under direct visualization and mesh appeared to be still lying in a good position. The ports were then removed. Anterior sheath was then closed with a running 0-0 vicryl suture. Skin was closed with 4-0 monocryl using subcuticular stitch. Steri strips were applied over the laparoscopic?incisions. ? All counts were correct at the end of the case. Patient tolerated the procedure well and was transferred to PACU without any complications. Findings: Small direct left inguinal hernia. Anesthesia: GETA Surgeon: Tabatha Raines MD Estimated blood loss (mL): 5 Condition: stable Disposition: PACU
--- NOTE | 2024-07-27 08:31 | P.ANES_ITS ---
Anesthesia Charges Start Date/Time Anesthesia Start Date: 07/27/24 Anesthesia Start Time: 07:19 Stop Date/Time Anesthesia Stop Date: 07/27/24 Anesthesia Stop Time: 08:31 Coding CPT Codes CPT Codes: ANESTH SURG LOWER ABDOMEN - 57879 ([id number]) P3 - PATIENT W/SEVERE SYS DISEASE, QK - BIOPHARMACEUTICAL REP 2-4 CNCRNT ANES PROC, QX - ATHLETIC EQUIPMENT CUSTODIAN SVC W/ MD MED DIRECTION
--- NOTE | 2024-07-27 08:31 | W.ANESCHARGE ---
Anesthesia Charges Start Date/Time Anesthesia Start Date: 07/27/24 Anesthesia Start Time: 07:19 Stop Date/Time Anesthesia Stop Date: 07/27/24 Anesthesia Stop Time: 08:31 Coding CPT Codes CPT Codes: ANESTH SURG LOWER ABDOMEN - 52172 ([id number]) P3 - PATIENT W/SEVERE SYS DISEASE, QK - LINE DEPARTMENT SUPERVISOR 2-4 CNCRNT ANES PROC, QX - OIL FURNACE INSTALLER SVC W/ MD MED DIRECTION
--- NOTE | 2024-07-27 08:47 | SUR.PHASEI ---
Patient arrived in PACU coughing, drowsy, oxygen saturation 95%. After 15 minutes in PACU, patient asked if he said anything bad in surgery. He stated he has bad PTSD. He stated minimal pain at a level 3 and did not want any medication at this time.
--- NOTE | 2024-07-27 08:56 | SUR.PHASEI ---
Patient meets discharge criteria from PACU.
--- NOTE | 2024-07-27 09:04 | P.ANES_ITS ---
Anesthesia Charges Start Date/Time Anesthesia Start Date: 07/27/24 Anesthesia Start Time: 07:19 Stop Date/Time Anesthesia Stop Date: 07/27/24 Anesthesia Stop Time: 08:31 Coding CPT Codes CPT Codes: ANESTH SURG LOWER ABDOMEN - 64612 ([id number]) QK - BUSINESS ENTERPRISE OFFICER 2-4 CNCRNT ANES PROC, QX - ENTERTAINMENT AGENT SVC W/ MD MED DIRECTION, P3 - PATIENT W/SEVERE SYS DISEASE
--- NOTE | 2024-07-27 09:04 | W.ANESCHARGE ---
Anesthesia Charges Start Date/Time Anesthesia Start Date: 07/27/24 Anesthesia Start Time: 07:19 Stop Date/Time Anesthesia Stop Date: 07/27/24 Anesthesia Stop Time: 08:31 Coding CPT Codes CPT Codes: ANESTH SURG LOWER ABDOMEN - 05810 ([id number]) QK - CONCRETE POINTER 2-4 CNCRNT ANES PROC, QX - BONE GLUE MAKER SVC W/ MD MED DIRECTION, P3 - PATIENT W/SEVERE SYS DISEASE
[2024-07-27] MEDS: HYDROCODONE-ACETAMIN 5-325 MG 1 TAB PO (09:25)
== END 2024-07-27 10:17 | disposition home or self-care (01) ==
PROVIDERS: Visit Provider Surgery
PROC: (CPT 49650; principal; 2024-07-27 07:30)
DX: K40.90 Unilateral inguinal hernia, without obstruction or gangrene, not specified as recurrent (principal)
CPT/HCPCS: 49650; 00840; A9270; C1781; J0665; J0690; J1100; J1171; J1885; J2405; J2704; J2710; J3010; J7120

== ENCOUNTER 2024-09-03 14:34 | Outpatient (CLI) | payer OTHER, SELFPAY | END 2024-09-03 14:35 | disposition home or self-care (01) | LOC: US 14:39 | PROVIDERS: Visit Provider Surgery | DX: N50.82 Scrotal pain (principal); N50.3 Cyst of epididymis | CPT/HCPCS: 76870; 93976 ==